=== PATIENT | male | born 1950 | race African-American/Black ===

== ENCOUNTER 2023-01-08 21:45 | Inpatient (IN) | payer MEDICARE, OTHER ==
[~2023-01-08] VITALS: Ht 172.7 cm; Wt 128.8 kg
[2023-01-08] MEDS ORDERED: FUROSEMIDE 40MG/4ML VIAL IV ONE (22:15)
[2023-01-08] MEDS ORDERED: NITROGLYCERIN OINT 1GM/INCH UDPKT TD ONE (22:15)
[2023-01-08] MEDS ORDERED: ASPIRIN 81MG TABLET PO ONE (22:15)
[2023-01-08 23:14] LABS: BASOPHILS % 0.6 % (0.0-2.0); HEMATOCRIT. 36.6 % (42.0-52.0); HEMOGLOBIN. 11.9 g/dL (14.0-18.0); LYMPHOCYTES % 25.4 % (20.0-50.0); MEAN CORPUSCULAR HEMOGLOBIN 27.1 pg (28.0-32.0); MEAN CORPUSCULAR VOLUME 83.4 fL (80.0-94.0); MEAN PLATELET VOLUME 8.5 fl (7.4-10.4); MONOCYTES % 7.6 % (2.0-8.0); NEUTROPHILS % 65.4 % (40.0-76.0); PLATELET 267 x1000/uL (130-400); RED BLOOD CELL COUNT 4.38 mill/uL (4.7-6.1); RED CELL DISTRIBUTION WIDTH 13.1 % (11.6-14.6)
[2023-01-08 23:23] LABS: CHLORIDE 100 mEq/L (98-107)
[2023-01-08] MEDS ORDERED: FUROSEMIDE 40MG/4ML VIAL IV NR (23:45)
[2023-01-08] MEDS ORDERED: NITROGLYCERIN OINT 1GM/INCH UDPKT TD NR (23:45)
[2023-01-08] MEDS ORDERED: ASPIRIN 81MG TABLET PO NR (23:45)
[2023-01-09 03:30] VITALS: BP 113/56
[2023-01-09 04:00] VITALS: BP 113/55
[2023-01-09 04:12] VITALS: BP 113/55
[2023-01-09] MEDS ORDERED: ZOLPIDEM TARTRATE 5MG TABLET PO PRN (04:45)
[2023-01-09] MEDS ORDERED: METHYLPREDNISOLONE SOD SUCC 40 MG/ML VIAL IV SCH (06:00)
[2023-01-09 08:00] VITALS: BP 160/74
[2023-01-09 09:07] LABS: BASOPHILS % 0.5 % (0.0-2.0); EOSINOPHILS % 0.9 % (0.0-5.0); HEMATOCRIT. 35.3 % (42.0-52.0); HEMOGLOBIN. 11.3 g/dL (14.0-18.0); LYMPHOCYTES % 16.7 % (20.0-50.0); MEAN PLATELET VOLUME 8.3 fl (7.4-10.4); MONOCYTES % 3.1 % (2.0-8.0); NEUTROPHILS % 78.8 % (40.0-76.0); PLATELET 241 x1000/uL (130-400); RED BLOOD CELL COUNT 4.19 mill/uL (4.7-6.1); RED CELL DISTRIBUTION WIDTH 13.6 % (11.6-14.6)
[2023-01-09] MEDS ORDERED: AMLODIPINE 10MG TABLET PO SCH (11:00)
[2023-01-09] MEDS ORDERED: HYDROCODONE/ACETAMINOPHEN 5/325MG TABLET PO PRN (11:00)
[2023-01-09] MEDS ORDERED: NALOXONE HCL 0.4MG/ML VIAL IV PRN (11:15)
[2023-01-09] MEDS ORDERED: METH-816 MT (11:47)
[2023-01-09] MEDS: IPRATROPIUM/ALBUTEROL 0.5-3(2.5)MG/3ML NEB HHN SCH ×2 (11:53→15:20)
[2023-01-09 12:00] VITALS: BP 147/68
[2023-01-09] MEDS ORDERED: BUPROPION HCL 150MG TABLET XL 24HR PO NR ×2 (12:00→14:30)
[2023-01-09] MEDS ORDERED: METOLAZONE 2.5MG TABLET PO NR (12:30)
[2023-01-09] MEDS ORDERED: FUROSEMIDE 100MG/10ML VIAL IVP SCH (12:30)
[2023-01-09] MEDS ORDERED: FLUTICASONE PROPIONATE 50MCG/SPRAY BOTTLE BOTHNSTRLS SCH (13:30)
[2023-01-09] MEDS ORDERED: LACTULOSE 20G/30ML UDC PO PRN (14:30)
[2023-01-09] MEDS ORDERED: GUAIFENESIN-DM 200MG-20MG/10ML UDC PO PRN (14:30)
[2023-01-09] MEDS ORDERED: DOCUSATE SODIUM 100MG CAPSULE PO SCH (15:00)
[2023-01-09 16:00] VITALS: BP 134/64
[2023-01-09] MEDS ORDERED: QUETIAPINE FUMARATE 50MG TABLET PO PRN (21:00)
[2023-01-10] MEDS ORDERED: MULTIVITAMINS,THER W-MINERALS TABLET PO SCH (09:00)
[2023-01-10] MEDS ORDERED: FUROSEMIDE 40MG TABLET PO SCH (09:00)
[2023-01-10] MEDS ORDERED: GABAPENTIN 300MG CAPSULE PO SCH (09:00)
== END 2023-01-09 18:00 | disposition left against medical advice (07) | DRG 291 ==
LOC: ER 21:45 → MICUSO 01-09 01:04 → 7WST 01-09 03:44
PROVIDERS: ADMIT Internal Medicine; ATTEND Internal Medicine
DX: I11.0 Hypertensive heart disease with heart failure (principal); I50.43 Acute on chronic combined systolic (congestive) and diastolic (congestive) heart failure; J96.21 Acute and chronic respiratory failure with hypoxia; E66.2 Morbid (severe) obesity with alveolar hypoventilation; Z68.41 Body mass index [BMI] 40.0-44.9, adult; F17.210 Nicotine dependence, cigarettes, uncomplicated; D64.9 Anemia, unspecified; K59.00 Constipation, unspecified; J44.9 Chronic obstructive pulmonary disease, unspecified; Z53.29 Procedure and treatment not carried out because of patient's decision for other reasons; Z99.81 Dependence on supplemental oxygen; Z91.199 Patient's noncompliance with other medical treatment and regimen due to unspecified reason
CPT/HCPCS: 36415; 71045; 80053; 83880; 84484; 85025; 85379; 93005; 99285; J1940; J2920